=== PATIENT | female | born 1955 | race Caucasian/White ===

== ENCOUNTER 2020-04-21 21:55 | Inpatient (IN) | payer OTHER ==
--- NOTE | 2020-04-21 22:30 | PDOC ---
History of Present Illness - General Chief Complaint: Chest Pain Stated Complaint: CHEST PAIN Time Seen by Provider: 04/21/20 22:25 - History of Present Illness Initial Comments: HPI: 04/21/20 22:03 64 yo F PMH HTN, HLD, NIDDM, asthma, presenting with L sided chest pressure. Mosotho speaking only. Complains of 5/10 L sided chest pressure without radiation and mild SOB since Sunday night, worsened with exertion. Took two baby aspirins this morning and went to an urgent care this morning. Reports that they did an EKG, which was normal, and told her to visit the ER if she continued to have symptoms. Reports diarrhea and frontal 5/10 headache starting today. Family member had similar symptoms, had negative COVID swab. Did not know she was febrile. Denies cough, runny nose, abd pain, urinary changes, N/V, constipation. PCP: Dr. Redmond ROS: GENERAL/CONSTITUTIONAL: endorses fever, chills, diaphoresis, generalized weakness HEAD, EYES, EARS, NOSE AND THROAT: denies rhinorrhea, nasal congestion, throat pain, throat swelling NEUROLOGIC: endorses headache. Denies focal weakness, dizziness, unsteady gait CARDIOVASCULAR: endorses chest pain. Denies syncope, palpitations, irregular heart rate, lightheadedness, peripheral edema RESPIRATORY: endorses shortness of breath and dyspnea with exertion. Denies cough, orthopnea, wheezing, stridor, hemoptysis GASTROINTESTINAL: denies abdominal pain, abdominal distension, nausea, vomiting, diarrhea, constipation, melena, hematochezia GENITOURINARY: denies dysuria, frequency, urgency, hesitancy, hematuria, flank pain, genital pain MUSCULOSKELETAL: denies myalgia, arthralgia, joint swelling, back pain, neck pain SKIN: denies rash, itching, pallor HEMATOLOGIC/IMMUNOLOGIC: denies easy bleeding, easy bruising, lymphadenopathy, frequent infections ENDOCRINE: denies unexplained weight gain, unexplained weight loss, heat intolerance, cold intolerance PSYCHIATRIC: denies anxiety, depression, suicidal or homicidal ideation, hallucinations PE: Gen: well-developed, well-nourished, NAD Neuro: AAOX4, CN II-XII intact HEENT: atraumatic, normocephalic, dry mucous membranes Neck: trachea midline, supple CV: tachycardic in the 110s, regular rhythm, no murmurs, rubs, or gallops Pulm: CTA b/l, no wheezing, satting 96% on RA Abd: soft, non-distended, non-tender MSK: full ROM, intact pulses Extr: no edema, no deformities Skin: warm, dry MDM: Concern for COVID v PNA v PE v ACS. - COVID order set - sepsis order set - Ofirmev - plan for chest CTA pending Cr - reassess, likely admit 04/21/20 22:11 EKG sinus tachycardia at 112 bpm, SD 138, QRS 70, QTc 420. CXR without acute abnormality. 04/22/20 00:03 UA without abnormality. 04/22/20 01:04 CMP unremarkable, Cr 0.8. Will get chest CTA for r/o PE. 04/22/20 01:32 WBC 17.3. 04/22/20 01:43 Chest CTA appears to have L apical consolidation, concerning for PNA v TB. Patient born in [facility] and has been told that she has positive PPDs in the p ast. No known history of latent or active TB. 04/22/20 02:53 Trop negative. Call placed to Imaging universal branch consultant concerning Chest CTA read, told that they will expedite the read. 04/22/20 03:09 Chest CTA: There is no PE or dissection. Heart size is normal. The trachea and bronchi are patent. There is no pericardial effusion. Left upper lobe consolidation likely represents pneumonia. No additional consolidations. There is a small left pleural effusion. Mild prevascular and left hilar adenopathy may be reactive to infection. No fractures identified. The upper abdominal structures are notable only for cholecystectomy clips.' IMPRESSION: Left upper lobe pneumonia with small left pleural effusion. Mild mediastinal left hilar adenopathy may be reactive to pneumonia. Past History - Medical History Allergies/Adverse Reactions: Allergies Allergy/AdvReac Type Severity Reaction Status Date / Time No Known Allergies Allergy Verified 04/22/20 03:51 Home Medications: Ambulatory Orders Albuterol 2.5/Ipratropium 0.5 2 puff PO 04/22/20 Aspirin [Lo-Dose Aspirin EC] 1 tab PO DAILY 04/22/20 Janumet 50-500 mg Tablet 1 tab PO DAILY 04/22/20 SYMBICORT 160/4.5mcg - 1 puff PO 04/22/20 Asthma: Yes COPD: No Diabetes: Yes HTN: Yes Hypercholesterolemia: Yes - Psycho-Social/Smoking History Smoking History: Never smoked - Substance Abuse Hx (Audit-C & DAST Scrn) How often the patient has a drink containing alcohol: Never Score: In Men: 4 or > Positive; In Women: 3 or > Positive: 0 Screen Result (Pos requires Nsg. Audit-10AR): Negative In the last yr the pt used illegal drug/Rx for NonMed reason: No Score: Yes response is considered Positive: 0 Screen Result (Positive result requires Nsg. DAST-10): Negative *Physical Exam - Vital Signs Last Vital Signs Temp Pulse Resp BP Pulse Ox 102.1 F H 98 H 19 138/63 97 04/21/20 21:58 04/21/20 21:58 04/21/20 21:58 04/21/20 21:58 04/21/20 21:58 ED Treatment Course - LABORATORY CBC & Chemistry Diagram: 04/22/20 05:56 04/22/20 05:56 Discharge - Discharge Information Problems reviewed: Yes Clinical Impression/Diagnosis: Left upper lobe consolidation Chest pain Qualifiers: Chest pain type: unspecified Qualified Code(s): R07.9 - Chest pain, unspecified Leukocytosis Qualifiers: Leukocytosis type: unspecified Qualified Code(s): D72.829 - Elevated white blood cell count, unspecified Condition: Guarded - Admission Yes - Follow up/Referral - Patient Discharge Instructions - Post Discharge Activity
[2020-04-21] MEDS ORDERED: ACETAMINOPHEN 1000 MG/100 ML VIAL (NON FORMULARY) IVPB ONE (22:54)
--- NOTE | 2020-04-21 23:44 | PDOC ---
Documentation entered by Nick Shanks SCRIBE, acting as scribe for Gina Marrero DO. Gina Marrero DO: This documentation has been prepared by the Rimma zaragoza Angel, SCRIBE, under my direction and personally reviewed by me in its entirety. I confirm that the documentation accurately reflects all work, treatment, procedures, and medical decision making performed by me. Attending Attestation - Resident Resident Name: CerratoDeshauntriny - ED Attending Attestation I have performed the following: I have examined & evaluated the patient, The case was reviewed & discussed with the resident, I agree w/resident's findings & plan, Exceptions are as noted - HPI HPI: 04/21/20 23:05 The patient is a 64 year old female with a significant past medical history of HTN, Diabetes, asthma and HLD who presents to the ED with SOB and left sided chest pressure since Sunday night, as well as fever and diarrhea starting today. The patient went to Urgent Care today where she got an ECG done, which was normal. Then was told if her symptoms persisted to come into the ED, then was sent home. The patient notes a mild headache, rating it a 5/10 in severity towards the front of her head. The patient denies sore throat, rhinorrhea, N/V or cough. 04/21/20 23:33 - Physicial Exam PE: 04/21/20 23:39 gen: aaox3, appears uncomfortable heart: +s1s2 tachy lungs: cta b/l abd: soft, nt/nd +bs ext: no c/c/e - Medical Decision Making 04/21/20 23:40 a/p: 64yo female with L sided cp since sunday assoc with sob -no radiation -pleuritic component and pressure -has been taking asa at home -went to urgent care, told "ekg was normal" and if worsens come to ER -pt now with a fever, frontal mobley, diarrhea today -family at home also has been sick, negative covid swab -no cough, no loss of taste or smell -will send labs, covid biomarkers, cxr was neg, but will send for cta chest given pleuritic cp -will monitor and reassess 04/22/20 00:01 ua neg 04/22/20 01:44 ct pending official read concern for DOTTIE pna vs tb per the daughter, pt from [facility], hx of +PPD in the past, but never had active TB will start abx, but will need quanteferon gold testing and neg pressure pending further eval 04/22/20 01:46 will microblog symphony for admission Heart Score/ECG Review - ECG Intrepretation Comment:: 04/21/20 23:43 sinus at 112, nl axis, nl interval, no acute st/t wave findings Discharge - Discharge Information Problems reviewed: Yes Clinical Impression/Diagnosis: Chest pain, Leukocytosis, Left upper lobe consolidation Condition: Guarded - Admission Yes - Follow up/Referral Referrals: Saqib Redmond MD [Primary Care Provider] - - Patient Discharge Instructions - Post Discharge Activity
[2020-04-21 23:55] LABS: PH,URINE 6.5 (5.0-8.0); URINE APPEARANCE CLEAR; URINE BILIRUBIN NEGATIVE (NEGATIVE); URINE COLOR YELLOW; URINE GLUCOSE (UA) NEGATIVE (NEGATIVE); URINE KETONE NEGATIVE (NEGATIVE); URINE LEUK ESTERASE NEGATIVE (NEGATIVE); URINE NITRITE NEGATIVE (NEGATIVE); URINE PROTEIN NEGATIVE (NEGATIVE); URINE UROBILINOGEN 0.2 mg/dL (0.2-1.0)
[2020-04-22 00:05] LABS: BASO % 0.6 % (0-2.0); EOS % 0.2 % (0-4.5); HEMATOCRIT 38.1 % (32.4-45.2); HEMOGLOBIN 12.6 GM/dL (10.7-15.3); LYMPH % 13.2 % (8-40); MCH 29.9 pg (25.7-33.7); MCHC 33.1 g/dl (32.0-36.0); MEAN CELL VOLUME 90.4 fl (80-96); MEAN PLT VOLUME 8.6 fl (7.5-11.1); MONO % 13.3 % (3.8-10.2); NEUT % 72.7 % (42.8-82.8); PLATELET COUNT 297 K/MM3 (134-434); RBC 4.21 M/mm3 (3.60-5.2); RDW 12.5 % (11.6-15.6); WHITE BLOOD COUNT 17.3 K/mm3 (4.0-10.0)
[2020-04-22 00:42] LABS: ALBUMIN 3.1 g/dl (3.4-5.0); ALK PHOS 106 U/L (45-117); ANION GAP 5 MMOL/L (8-16); BILIRUBIN,DIRECT 0.2 mg/dL (0.0-0.2); BILIRUBIN,TOTAL 0.5 mg/dL (0.2-1); BLOOD UREA NITROGEN 13.6 mg/dL (7-18); CALCIUM 8.4 mg/dL (8.5-10.1); CHLORIDE 101 mmol/L (98-107); CO2 28 mmol/L (21-32); CREATININE 0.8 mg/dL (0.55-1.3); GLUCOSE,RANDOM 146 mg/dL (74-106); POTASSIUM 4.2 mmol/L (3.5-5.1); SGOT/AST 19 U/L (15-37); SGPT/ALT 26 U/L (13-61); SODIUM 134 mmol/L (136-145); TOT PROT 7.1 g/dl (6.4-8.2)
[2020-04-22 00:47] LABS: INR 1.07 (0.83-1.09); PROTHROMBIN TIME (PATIENT) 12.6 SEC (9.7-13.0)
[2020-04-22 00:49] LABS: ACTIVATED PTT 30.9 SECONDS (25.2-36.5)
[2020-04-22] MEDS ORDERED: CEFTRIAXONE 1,000 MG in DEXTROSE 5%-WATER - 50 ML IVPB ONE (01:37)
[2020-04-22] MEDS ORDERED: AZITHROMYCIN IVPB 500 MG in DEXTROSE 5%-WATER - 250 ML IVPB ONE (01:38)
[2020-04-22] MEDS ORDERED: CEFTRIAXONE 1 GM in DEXTROSE 5%-WATER - 50 ML IVPB ONE (02:05)
[2020-04-22 02:07] LABS: LDH 194 U/L (84-246)
[2020-04-22] MEDS ORDERED: AZITHROMYCIN IVPB 500 MG/250 ML BAG IVPB ONE ×3 (02:36→09:22)
--- NOTE | 2020-04-22 03:16 | HP ---
CHIEF COMPLAINT: Chest pressure PCP: Dr. Saqib Redmond HISTORY OF PRESENT ILLNESS: Ms. Nesbitt is a 64F w a pmhx of HTN, HLD, NIDDM, asthma. She arrived to the ED for a pressure like sensation that originated in the L chest area. The patient reported that the pain was continuous and did not radiate anywhere. C ommunication was done via daughter. The patient had never felt this sensation in the past however she notes that her family member has had similar symptoms recently. The patient reports that the symptoms started on sunday and became worse with increased activity and exertion. The patient endorses diarrhea x1 and a headache. The patient denies productive cough, diaphoresis, changes in bowel or urinary habits. Denies cough, runny nose, abd pain, urinary changes, N/V, constipation. ER course was notable for: (1) CT scan - DOTTIE pneumonia (2) (3) Recent Travel: no PAST MEDICAL HISTORY: as above PAST SURGICAL HISTORY: cholecystectomy, Social History: Smoking: denies Alcohol: socially Drugs: denies HOME MEDICATIONS: REVIEW OF SYSTEMS CONSTITUTIONAL: Absent: fever, chills, diaphoresis, generalized weakness, malaise, loss of appetite, weight change HEENT: Absent: rhinorrhea, nasal congestion, throat pain, throat swelling, difficulty swallowing, mouth swelling, ear pain, eye pain, visual changes CARDIOVASCULAR: Absent: chest pain, syncope, palpitations, irregular heart rate, lightheadedness, peripheral edema RESPIRATORY: Absent: cough, shortness of breath, dyspnea with exertion, orthopnea, wheezing, stridor, hemoptysis GASTROINTESTINAL: Absent: abdominal pain, abdominal distension, nausea, vomiting, diarrhea, constipation, melena, hematochezia PHYSICAL EXAMINATION Vital Signs - 24 hr 04/21/20 04/22/20 21:58 00:02 Temperature 102.1 F H Pulse Rate 98 H Respiratory 19 Rate Blood Pressure 138/63 O2 Sat by Pulse 97 95 Oximetry (%) GENERAL: Awake, alert, and fully oriented, in no acute distress. NECK: Normal range of motion, supple without lymphadenopathy, JVD, or masses. LUNGS: Breath sounds equal, clear to auscultation bilaterally. No wheezes, and no crackles. No accessory muscle use. HEART: Regular rate and rhythm, normal S1 and S2 without murmur, rub or gallop. ABDOMEN: Soft, nontender, not distended, normoactive bowel sounds, no guarding, no rebound, no masses. No hepatomegaly or splenomegaly. UPPER EXTREMITIES: 2+ pulses, warm, well-perfused. No cyanosis. No clubbing. No peripheral edema. LOWER EXTREMITIES: 2+ pulses, warm, well-perfused. No calf tenderness. No peripheral edema. Laboratory Results - last 24 hr 04/21/20 04/21/20 04/21/20 23:40 23:47 23:47 WBC 17.3 H RBC 4.21 Hgb 12.6 Hct 38.1 MCV 90.4 MCH 29.9 MCHC 33.1 RDW 12.5 Plt Count 297 MPV 8.6 Absolute Neuts (auto) 12.6 H Neutrophils % 72.7 Lymphocytes % 13.2 Monocytes % 13.3 H Eosinophils % 0.2 Basophils % 0.6 Nucleated RBC % 0 PT with INR 12.60 INR 1.07 PTT (Actin FS) 30.9 Sodium Potassium Chloride Carbon Dioxide Anion Gap BUN Creatinine Est GFR (CKD-EPI)AfAm Est GFR (CKD-EPI)NonAf Random Glucose Lactic Acid 1.9 Calcium Ferritin Total Bilirubin Direct Bilirubin AST ALT Alkaline Phosphatase LD Total Creatine Kinase Troponin I C-Reactive Protein Total Protein Albumin Urine Color Urine Appearance Urine pH Ur Specific [place] Urine Protein Urine Glucose (UA) Urine Ketones Urine Blood Urine Nitrite Urine Bilirubin Urine Urobilinogen Ur Leukocyte Esterase 04/21/20 04/21/20 23:47 23:47 WBC RBC Hgb Hct MCV MCH MCHC RDW Plt Count MPV Absolute Neuts (auto) Neutrophils % Lymphocytes % Monocytes % Eosinophils % Basophils % Nucleated RBC % PT with INR INR PTT (Actin FS) Sodium 134 L Potassium 4.2 Chloride 101 Carbon Dioxide 28 Anion Gap 5 L BUN 13.6 Creatinine 0.8 Est GFR (CKD-EPI)AfAm 89.04 Est GFR (CKD-EPI)NonAf 76.83 Random Glucose 146 H Lactic Acid Calcium 8.4 L Ferritin 157.7 Total Bilirubin 0.5 Direct Bilirubin 0.2 AST 19 ALT 26 Alkaline Phosphatase 106 LD Total 194 Creatine Kinase 72 Troponin I < 0.03 C-Reactive Protein 15.6 H Total Protein 7.1 Albumin 3.1 L Urine Color Yellow Urine Appearance Clear Urine pH 6.5 Ur Specific [place] 1.003 L Urine Protein Negative Urine Glucose (UA) Negative Urine Ketones Negative Urine Blood Negative Urine Nitrite Negative Urine Bilirubin Negative Urine Urobilinogen 0.2 Ur Leukocyte Esterase Negative ASSESSMENT/PLAN: Ms. Nesbitt is a 64F w a pmhx of HTN, HLD, NIDDM, asthma. She arrived to the ED for a pressure like sensation that originated in the L chest area. #Community acquired pna patient will be admitted to med/surg patient will receive empiric abx tx - azythromycin & ceftriaxone consult ID sputum culture to r/o TB legionella/strep test #NIDDM ISS #Asthma Symbicort albuterol #FEN Diabetic diet #DVT ppx lovenox sq Family Medical History Family History: As Documented Visit type - Medication Review Med list reviewed for High Risk Meds patients 65 and older: Yes - Emergency Visit Emergency Visit: Yes ED Registration Date: 04/22/20 Care time: The patient presented to the Emergency Department on the above date and was hospitalized for further evaluation of their emergent condition. - New Patient This patient is new to me today: Yes Date on this admission: 04/22/20 - Critical Care Critical Care patient: No ATTENDING PHYSICIAN STATEMENT I saw and evaluated the patient. I reviewed the resident's note and discussed the case with the resident. I agree with the resident's findings and plan as documented. SUBJECTIVE: OBJECTIVE: ASSESSMENT AND PLAN:
[2020-04-22] MEDS ORDERED: CEFTRIAXONE 1 GM/50 ML BAG ONE ×2 (03:27→09:22)
--- NOTE | 2020-04-22 03:53 | PN ---
Teaching Attending Note Name of Resident: Yosi Ng ATTENDING PHYSICIAN STATEMENT I saw and evaluated the patient. I reviewed the resident's note and discussed the case with the resident. I agree with the resident's findings and plan as documented. SUBJECTIVE: 64yoF with history of positive PPD, HTN, T2DM, asthma, and HLD who presents with fever, pleuritic chest pain, and diarrhea. Patient developed fever and pleuritic chest pressure about 4 days prior to presentation. Denies cough, shortness of breath, palpitations, lightheadedness, or syncope. Had one episode of diarrhea yesterday and developed dry cough today. She presented to urgent care, had a normal EKG and was told to present to the ED if worsening symptoms. She called her daughter who is a radius corner machine operator who brought her to the ED. Patient was born in [facility] and has a history of positive PPD, unsure if she received BCG. Denies weight loss, hemoptysis, night sweats. Patient was febrile to 102.1F in the ED. Labs notable for WBC 17.3. CXR was negative but CTA chest was done to rule out PE due to pleuritic nature of the chest pain. No PE was seen but DOTTIE consolidation noted. Patient received ceftriaxone and azithromycin, placed on airborne precautions for r/o TB, and is admitted for further work up and management. OBJECTIVE: Vital Signs - 24 hr 04/21/20 04/22/20 21:58 00:02 Temperature 102.1 F H Pulse Rate 98 H Respiratory 19 Rate Blood Pressure 138/63 O2 Sat by Pulse 97 95 Oximetry (%) EXAM Gen: awake, alert, NAD. Pleasant and conversant, generally well-appearing HEENT: NC/AT CV: RRR, no MRG Resp: CTAB, unlabored breathing Abd: Soft, NT, ND, +BS Ext: No edema Derm: No rashes. Warm, dry, intact Neuro: CN II-XII grossly intact Psych: AOx3 Laboratory Results - last 24 hr 04/21/20 04/21/20 04/21/20 23:40 23:47 23:47 WBC 17.3 H RBC 4.21 Hgb 12.6 Hct 38.1 MCV 90.4 MCH 29.9 MCHC 33.1 RDW 12.5 Plt Count 297 MPV 8.6 Absolute Neuts (auto) 12.6 H Neutrophils % 72.7 Lymphocytes % 13.2 Monocytes % 13.3 H Eosinophils % 0.2 Basophils % 0.6 Nucleated RBC % 0 PT with INR 12.60 INR 1.07 PTT (Actin FS) 30.9 Sodium Potassium Chloride Carbon Dioxide Anion Gap BUN Creatinine Est GFR (CKD-EPI)AfAm Est GFR (CKD-EPI)NonAf Random Glucose Lactic Acid 1.9 Calcium Ferritin Total Bilirubin Direct Bilirubin AST ALT Alkaline Phosphatase LD Total Creatine Kinase Troponin I C-Reactive Protein Total Protein Albumin Urine Color Urine Appearance Urine pH Ur Specific [place] Urine Protein Urine Glucose (UA) Urine Ketones Urine Blood Urine Nitrite Urine Bilirubin Urine Urobilinogen Ur Leukocyte Esterase 04/21/20 04/21/20 23:47 23:47 WBC RBC Hgb Hct MCV MCH MCHC RDW Plt Count MPV Absolute Neuts (auto) Neutrophils % Lymphocytes % Monocytes % Eosinophils % Basophils % Nucleated RBC % PT with INR INR PTT (Actin FS) Sodium 134 L Potassium 4.2 Chloride 101 Carbon Dioxide 28 Anion Gap 5 L BUN 13.6 Creatinine 0.8 Est GFR (CKD-EPI)AfAm 89.04 Est GFR (CKD-EPI)NonAf 76.83 Random Glucose 146 H Lactic Acid Calcium 8.4 L Ferritin 157.7 Total Bilirubin 0.5 Direct Bilirubin 0.2 AST 19 ALT 26 Alkaline Phosphatase 106 LD Total 194 Creatine Kinase 72 Troponin I < 0.03 C-Reactive Protein 15.6 H Total Protein 7.1 Albumin 3.1 L Urine Color Yellow Urine Appearance Clear Urine pH 6.5 Ur Specific [place] 1.003 L Urine Protein Negative Urine Glucose (UA) Negative Urine Ketones Negative Urine Blood Negative Urine Nitrite Negative Urine Bilirubin Negative Urine Urobilinogen 0.2 Ur Leukocyte Esterase Negative Imaging, EKG reviewed in chart ASSESSMENT AND PLAN: 64yoF with history of positive PPD, HTN, T2DM, asthma, and HLD who presents with fever, pleuritic chest pain, and diarrhea found to have DOTTIE Sepsis secondary to DOTTIE pneumonia; r/o active TB DOTTIE consolidation on CT per prelim read without cavitation Patient was born in an endemic area and has reported h/o positive PPD Symptoms and imaging are equivocal for active TB but given risk factors will place on isolation pending ID consult - ceftriaxone/azithromycin - strep, legionalla - f/u COVID - IGRA - AFB sputum culture x3 - airborne precautions - ID consult T2DM: ISS Asthma: continue inhalers DVT ppx: Lovenox subq
[2020-04-22] MEDS ORDERED: ALBUTEROL PO SCH (04:30)
[2020-04-22] MEDS ORDERED: IPRATROPIUM PO SCH (04:30)
[2020-04-22] MEDS ORDERED: SYMBICORT PO SCH (04:30)
[2020-04-22] MEDS ORDERED: ALBUTEROL SO4 HFA INHALER IH PRN (05:45)
[2020-04-22 06:20] LABS: BASO % 0.7 % (0-2.0); EOS % 0.5 % (0-4.5); HEMATOCRIT 36.7 % (32.4-45.2); HEMOGLOBIN 12.1 GM/dL (10.7-15.3); LYMPH % 14.9 % (8-40); MCH 29.4 pg (25.7-33.7); MEAN PLT VOLUME 8.5 fl (7.5-11.1); MONO % 15.4 % (3.8-10.2); NEUT % 68.5 % (42.8-82.8); PLATELET COUNT 302 K/MM3 (134-434); RBC 4.13 M/mm3 (3.60-5.2); RDW 12.4 % (11.6-15.6); WHITE BLOOD COUNT 15.8 K/mm3 (4.0-10.0)
[2020-04-22] MEDS ORDERED: ALBUTEROL SO4 HFA INHALER IH ONE (09:20)
[2020-04-22] MEDS ORDERED: ENOXAPARIN NA (PORCINE) 40 MG/0.4 ML DISP.SYRIN SQ ONE (09:20)
[2020-04-22] MEDS ORDERED: ASPIRIN COATED 81 MG TABLET.EC ONE (09:20)
[2020-04-22 09:29] LABS: ALBUMIN 2.9 g/dl (3.4-5.0); BILIRUBIN,TOTAL 0.8 mg/dL (0.2-1); BLOOD UREA NITROGEN 9.8 mg/dL (7-18); CALCIUM 8.4 mg/dL (8.5-10.1); CREATININE 0.8 mg/dL (0.55-1.3); MAGNESIUM 2.1 mg/dL (1.8-2.4); PHOSPHOROUS 3.8 mg/dL (2.5-4.9); POTASSIUM 4.2 mmol/L (3.5-5.1); TOT PROT 6.8 g/dl (6.4-8.2)
--- NOTE | 2020-04-22 09:45 | PN ---
Progress Note (short form) - Note Progress Note: S: Pt has no complaints currently. She reports having a dry cough which had not gone away. She was originally from [facility], however she cannot remember if she received a BCG vaccine as a child. She denies any fever/chills, hemoptysis, no weight loss or night sweats Vital Signs Temperature 98.4 F 04/22/20 06:18 Pulse Rate 89 04/22/20 06:18 Respiratory Rate 18 04/22/20 06:18 Blood Pressure 123/50 L 04/22/20 06:18 O2 Sat by Pulse Oximetry (%) 96 04/22/20 06:18 PE: Gen: NAD, awake, alert, laying in bed HEENT: Nc/At, MMM, BOBBY Neck: No lymphadenopathy LUNG: CTA b/l without wheezes or rales CARD: RRR no murmurs ABD: Soft, NT/ND, + BS EXT: No edema, strong pulses Skin: No rashes CBC, BMP 04/22/20 05:56 04/22/20 05:56 Active Medications Albuterol Sulfate (Ventolin Hfa Inhaler -) 2 puff IH Q4H PRN PRN Reason: SHORT OF BREATH/WHEEZING Aspirin (Ecotrin -) 81 mg PO DAILY WILLAM Last Admin: 04/22/20 09:53 Dose: Not Given Documented by: Budesonide/Formoterol Fumarate (Symbicort 160/4.5mcg -) 1 puff IH BID WILLAM Last Admin: 04/22/20 09:54 Dose: Not Given Documented by: Enoxaparin Sodium (Lovenox -) 40 mg SQ DAILY WILLAM Last Admin: 04/22/20 09:53 Dose: 40 mg Documented by: Azithromycin (Zithromax 500mg Ivpb (Pre-Docked)) 500 mg in 250 mls @ 250 mls/hr IVPB DAILY WILLAM Stop: 04/24/20 09:59 Ceftriaxone Sodium 1 gm/ (Dextrose) 50 mls @ 100 mls/hr IVPB DAILY WILLAM; Protocol A/P: Sepsis 2/2 DOTTIE CAPna R/o TB Type 2 DM, controlled History of HTN, controlled History of HLd Known history of PPD --Rocephin and Zithromax to continue for CAPna --Will need to r/o TB considering symptoms and endemic area --Pt from endemic area and unsure if received BCG vaccine when child --Quantiferon pending; CT reviewed (no cavitations but DOTTIE opacification) --AFB sputum to be collected; can induce if necessary --ISS and BGM --Continue inhalers as above DVT - Lovenox SQ Zachery Agosto, DO - IM
[2020-04-22] MEDS: ENOXAPARIN NA (PORCINE) 40 MG/0.4 ML DISP.SYRIN SQ SCH (09:53)
[2020-04-22] MEDS: ASPIRIN COATED 81 MG TABLET.EC PO SCH (09:53)
[2020-04-22] MEDS: BUDESONIDE/FORMETEROL FUMARATE 160/4.5 mcg INHALER IH SCH (09:54)
--- NOTE | 2020-04-22 21:04 | PN ---
Progress Note (short form) - Note Progress Note: ID CONSULT DICTATED
[2020-04-22 22:50] VITALS: BMI 28.5
[2020-04-23] MEDS: BUDESONIDE/FORMETEROL FUMARATE 160/4.5 mcg INHALER IH SCH ×3 (00:16→22:35)
[2020-04-23] MEDS ORDERED: CEFTRIAXONE 250 MG in DEXTROSE 5%-WATER - 50 ML IVPB ONE (06:00)
[2020-04-23 08:13] LABS: HEMATOCRIT 35.4 % (32.4-45.2); HEMOGLOBIN 12.1 GM/dL (10.7-15.3); MCH 30.3 pg (25.7-33.7); MCHC 34.2 g/dl (32.0-36.0); MEAN CELL VOLUME 88.8 fl (80-96); MEAN PLT VOLUME 8.7 fl (7.5-11.1); PLATELET COUNT 330 K/MM3 (134-434); RBC 3.99 M/mm3 (3.60-5.2); RDW 12.2 % (11.6-15.6); WHITE BLOOD COUNT 10.3 K/mm3 (4.0-10.0)
--- NOTE | 2020-04-23 09:13 | CONS ---
DATE OF CONSULTATION: DATE OF DICTATION: 04/22/2020 INFECTIOUS DISEASE CONSULTATION HISTORY OF PRESENT ILLNESS: The patient is a 64-year-old female who is evaluated for possible pneumonia. She has a past medical history of hypertension, diabetes, asthma, hyperlipidemia. She presented to the emergency room with shortness of breath and left-sided chest discomfort for approximately 3 days prior to admission. She also developed fever and loose bowel movements today. She presented to an urgent care center where an EKG was done and was normal. She was told that if her symptoms persisted to present to the emergency room and was sent home. Patient continued to complain of shortness of breath and pleuritic-type chest pain. She had been taking aspirin at home. She reports cough productive of whitish sputum. She also complained of fever, frontal headache and loose bowel movements. Patient lives at home in the community. She reports having some ill family members at home. She denies any loss of taste or smell. She presented to the emergency room where a COVID-19 PCR was performed and is pending. Chest x-ray showed possible left upper lobe pneumonia. PAST MEDICAL HISTORY: Positive for hypertension, diabetes, asthma, hyperlipidemia. ALLERGIES: She has no known allergies. MEDICATIONS: At the present time include Zithromax, ceftriaxone, albuterol, Lovenox. SOCIAL HISTORY: She is originally from [facility], has been living in the [facility] for many years. She denies tobacco, alcohol or illicit drug use. SYSTEMS REVIEW: Neurologic: No loss of consciousness, no seizure activity, focal weakness. Cardiac: As per HPI. Respiratory: As per HPI. Gastrointestinal: Negative vomiting. Positive diarrhea. Genitourinary: Negative for urinary tract infection. PHYSICAL EXAMINATION: Vital Signs: Temperature 98.1, blood pressure 138/62, pulse 90, regular, respirations 20 per minute, T-Max 102. General: She is awake and alert. She is weak appearing, supine on the stretcher in the emergency room. She is in no acute respiratory distress. Breathing is nonlabored on nasal cannula O2. HEENT: Her sclerae are anicteric. Cardiac: Heart sounds S1 and S2. Lungs: Scattered rhonchi bilaterally. Abdomen: Soft. No tenderness elicited. No mass, rebound or rigidity. Extremities: Negative for edema. LABORATORY DATA: White count 17.3, hematocrit 38.1, platelets 297. Creatinine 0.8. Urinalysis negative. COVID-19 pending. Cultures pending. IMPRESSION: 1. Rule out community acquired versus atypical pneumonia. 2. Rule out sepsis secondary to pneumonia. 3. History of chronic lung disease. RECOMMENDATIONS: Obtain sputum culture, urine legionella and pneumococcal antigen, blood cultures. Continue empiric antibiotic coverage for community acquired versus atypical pneumonia with Zithromax and ceftriaxone. COVID-19 PCR. Will follow. Thank you for the kind referral. SAURABH LEPE M.D. [id number]
[2020-04-23] MEDS ORDERED: AZITHROMYCIN IVPB 500 MG/250 ML BAG IVPB SCH (10:00)
[2020-04-23] MEDS ORDERED: DEXTROSE 5%-WATER - 50 ML IVPB ONE (10:09)
[2020-04-23] MEDS ORDERED: cefTRIAXone SODIUM 1 GM VIAL ONE (10:09)
[2020-04-23] MEDS: ENOXAPARIN NA (PORCINE) 40 MG/0.4 ML DISP.SYRIN SQ SCH (10:14)
[2020-04-23] MEDS: CEFTRIAXONE 1 GM in DEXTROSE 5%-WATER - 50 ML IVPB SCH (10:14)
[2020-04-23] MEDS: ASPIRIN COATED 81 MG TABLET.EC PO SCH (10:14)
--- NOTE | 2020-04-23 13:51 | PN ---
Physical Exam: SUBJECTIVE: Patient seen and examined OBJECTIVE: Vital Signs Period Temp Pulse Resp BP Sys/Lynch Pulse Ox Last 24 Hr 97.8 F-100.2 F 72-107 16-20 110-156/54-75 93-100 GENERAL: The patient is awake, alert, and fully oriented, in no acute distress. HEAD: Normal with no signs of trauma. EYES: PERRL, extraocular movements intact, sclera anicteric, conjunctiva clear. No ptosis. ENT: Ears normal, nares patent, oropharynx clear without exudates, moist mucous membranes. NECK: Trachea midline, full range of motion, supple. LUNGS: Breath sounds equal, clear to auscultation bilaterally, no wheezes, no crackles, no accessory muscle use. HEART: Regular rate and rhythm, S1, S2 without murmur, rub or gallop. ABDOMEN: Soft, nontender, nondistended, normoactive bowel sounds, no guarding, no rebound, no hepatosplenomegaly, no masses. EXTREMITIES: 2+ pulses, warm, well-perfused, no edema. NEUROLOGICAL: Cranial nerves II through XII grossly intact. Normal speech, gait not observed. PSYCH: Normal mood, normal affect. SKIN: Warm, dry, normal turgor, no rashes or lesions noted Laboratory Results - last 24 hr 04/21/20 04/23/20 04/23/20 23:50 07:05 07:05 WBC 10.3 H RBC 3.99 Hgb 12.1 Hct 35.4 MCV 88.8 MCH 30.3 MCHC 34.2 RDW 12.2 Plt Count 330 MPV 8.7 COVID-19 ([facility]) Not detected HIV Ag/Ab Combo Qual Negative Active Medications Generic Name Dose Route Start Last Admin Trade Name Freq PRN Reason Stop Dose Admin Albuterol Sulfate 2 puff 04/22/20 05:45 Ventolin Hfa Inhaler - IH Q4H PRN SHORT OF BREATH/WHEEZING Aspirin 81 mg 04/22/20 10:00 04/23/20 10:14 Ecotrin - PO 81 mg DAILY WILLAM Administration Budesonide/Formoterol Fumarate 1 puff 04/22/20 10:00 04/23/20 10:16 Symbicort 160/4.5mcg - IH 1 puff BID WILLAM Administration Enoxaparin Sodium 40 mg 04/22/20 10:00 04/23/20 10:14 Lovenox - SQ 40 mg DAILY WILLAM Administration Azithromycin 500 mg in 250 mls @ 250 mls/hr 04/23/20 10:00 04/23/20 11:28 Zithromax 500mg Ivpb (Pre-Docked) IVPB 04/24/20 09:59 250 mls/hr DAILY WILLAM Administration Ceftriaxone Sodium 1 gm/ 50 mls @ 100 mls/hr 04/23/20 10:00 04/23/20 10:14 Dextrose IVPB 100 mls/hr DAILY WILLAM Administration Protocol ASSESSMENT/PLAN: 64 YO lady with Mhx of HTN, HLD, DM and hx of positive PPD admitted for fever, pleuritic chest pain, and diarrhea # Sepsis 2/2 CAP R/o TB no fever last 24H, WBC trended down Rocephin and Zithromax pt feeling much improved AFB sputum pending, negative for legionella quantiferron negative ID consult appreciated DM HTN HLD Known history of PPD DVT - Lovenox SQ Visit type - Emergency Visit Emergency Visit: Yes ED Registration Date: 04/22/20 Care time: The patient presented to the Emergency Department on the above date and was hospitalized for further evaluation of their emergent condition. - New Patient This patient is new to me today: Yes Date on this admission: 04/23/20 - Critical Care Critical Care patient: No - Discharge Referral Referred to [facility] Med P.C.: No - Medication Review Med list reviewed for High Risk Meds patients 65 and older: Yes (yes)
--- NOTE | 2020-04-23 15:09 | PN ---
Progress Note, Physician History of Present Illness: AWAKE, ALERT IN BED NO C/O DYSPNEA/COUGH/ SPUTUM LOW GRADE FEVER WBC IMPROVED C/S PENDING COVID-19 (-) - Current Medication List Current Medications: Active Medications Albuterol Sulfate (Ventolin Hfa Inhaler -) 2 puff IH Q4H PRN PRN Reason: SHORT OF BREATH/WHEEZING Aspirin (Ecotrin -) 81 mg PO DAILY [facility] Last Admin: 04/23/20 10:14 Dose: 81 mg Documented by: Budesonide/Formoterol Fumarate (Symbicort 160/4.5mcg -) 1 puff IH BID WILLAM Last Admin: 04/23/20 10:16 Dose: 1 puff Documented by: Enoxaparin Sodium (Lovenox -) 40 mg SQ DAILY [facility] Last Admin: 04/23/20 10:14 Dose: 40 mg Documented by: Azithromycin (Zithromax 500mg Ivpb (Pre-Docked)) 500 mg in 250 mls @ 250 mls/hr IVPB DAILY [facility] Stop: 04/24/20 09:59 Last Admin: 04/23/20 11:28 Dose: 250 mls/hr Documented by: Ceftriaxone Sodium 1 gm/ (Dextrose) 50 mls @ 100 mls/hr IVPB DAILY [facility]; Protocol Last Admin: 04/23/20 10:14 Dose: 100 mls/hr Documented by: - Objective Vital Signs: Vital Signs Temperature 98.9 F 04/23/20 11:00 Pulse Rate 72 04/23/20 09:35 Respiratory Rate 04/23/20 06:00 Blood Pressure 110/60 04/23/20 09:35 O2 Sat by Pulse Oximetry (%) 93 L 04/23/20 11:00 Constitutional: Yes: No Distress, Mild Distress Eyes: Yes: Conjunctiva Clear Cardiovascular: Yes: Regular Rate and Rhythm, S1, S2 Respiratory: Yes: Diminished Gastrointestinal: Yes: Normal Bowel Sounds, Soft. No: Tenderness Edema: No Labs: CBC, BMP 04/23/20 07:05 04/22/20 05:56 INR, PTT INR 1.07 (0.83-1.09) 04/21/20 23:47 Assessment/Plan COMMMUNITY ACQUIRED V. ATYPICAL PNEUMONIA AWAIT C/S CONTINUE EMPIRIC ZITHROMAX/ CEFTRIAXONE
[2020-04-24 08:09] LABS: BASO % 0.3 % (0-2.0); EOS % 2.7 % (0-4.5); HEMATOCRIT 34.8 % (32.4-45.2); HEMOGLOBIN 11.9 GM/dL (10.7-15.3); LYMPH % 25.8 % (8-40); MCH 30.1 pg (25.7-33.7); MCHC 34.1 g/dl (32.0-36.0); MEAN CELL VOLUME 88.3 fl (80-96); MEAN PLT VOLUME 8.4 fl (7.5-11.1); NEUT % 53.2 % (42.8-82.8); PLATELET COUNT 342 K/MM3 (134-434); RBC 3.94 M/mm3 (3.60-5.2); RDW 12.4 % (11.6-15.6); WHITE BLOOD COUNT 7.9 K/mm3 (4.0-10.0)
[2020-04-24 08:33] LABS: ALBUMIN 2.6 g/dl (3.4-5.0); BILIRUBIN,TOTAL 0.3 mg/dL (0.2-1); BLOOD UREA NITROGEN 11.4 mg/dL (7-18); CALCIUM 8.6 mg/dL (8.5-10.1); CREATININE 0.6 mg/dL (0.55-1.3); POTASSIUM 4.3 mmol/L (3.5-5.1); TOT PROT 6.5 g/dl (6.4-8.2)
[2020-04-24] MEDS ORDERED: PT OWN MED DRAWER 7, Y5N ONE ×2 (09:30→17:58)
[2020-04-24] MEDS ORDERED: DEXTROSE 5%-WATER - 50 ML IVPB ONE (09:31)
[2020-04-24] MEDS ORDERED: cefTRIAXone SODIUM 1 GM VIAL ONE (09:31)
[2020-04-24] MEDS: BUDESONIDE/FORMETEROL FUMARATE 160/4.5 mcg INHALER IH SCH ×2 (09:47→23:10)
[2020-04-24] MEDS: ASPIRIN COATED 81 MG TABLET.EC PO SCH (09:47)
[2020-04-24] MEDS: CEFTRIAXONE 1 GM in DEXTROSE 5%-WATER - 50 ML IVPB SCH (09:47)
[2020-04-24] MEDS: ENOXAPARIN NA (PORCINE) 40 MG/0.4 ML DISP.SYRIN SQ SCH (09:47)
--- NOTE | 2020-04-24 16:13 | EKG ---
Test Reason : Blood Pressure : / mmHG Vent. Rate : 112 BPM Atrial Rate : 112 BPM P-R Int : 138 ms QRS Dur : 070 ms QT Int : 308 ms P-R-T Axes : 067 022 061 degrees QTc Int : 420 ms SINUS TACHYCARDIA POSSIBLE LEFT ATRIAL ENLARGEMENT BORDERLINE ECG NO PREVIOUS ECGS AVAILABLE Confirmed by MD Enrique, Dion ([id number]) on 04/24/2020 4:13:16 PM Referred By: Confirmed By:Dion Nunez MD
--- NOTE | 2020-04-24 17:41 | PN ---
Progress Note, Physician - Current Medication List Current Medications: Active Medications Albuterol Sulfate (Ventolin Hfa Inhaler -) 2 puff IH Q4H PRN PRN Reason: SHORT OF BREATH/WHEEZING Aspirin (Ecotrin -) 81 mg PO DAILY [facility] Last Admin: 04/24/20 09:47 Dose: 81 mg Documented by: Budesonide/Formoterol Fumarate (Symbicort 160/4.5mcg -) 1 puff IH BID [facility] Last Admin: 04/24/20 09:47 Dose: 1 puff Documented by: Enoxaparin Sodium (Lovenox -) 40 mg SQ DAILY [facility] Last Admin: 04/24/20 09:47 Dose: 40 mg Documented by: Ceftriaxone Sodium 1 gm/ (Dextrose) 50 mls @ 100 mls/hr IVPB DAILY [facility]; Protocol Last Admin: 04/24/20 09:47 Dose: 100 mls/hr Documented by: - Objective Vital Signs: Vital Signs Temperature 98.1 F 04/24/20 14:40 Pulse Rate 86 04/24/20 14:40 Respiratory Rate 18 04/24/20 14:40 Blood Pressure 119/70 04/24/20 14:40 O2 Sat by Pulse Oximetry (%) 98 04/24/20 14:40 Labs: CBC, BMP 04/24/20 07:16 04/24/20 07:16 INR, PTT INR 1.07 (0.83-1.09) 04/21/20 23:47 Impression/Plan Impression/Plan: Ms. Nesbitt is a 64 year old female with a PMHx notable for HTN, HLD, NIDDM, & asthma. She arrived to the ED for a pressure-like sensation that originated in the Left chest area. #Sepsis 2/2 Community acquired pna Rule out TB Sputum AFP pending / Legionella negative Continue on azithromycin & ceftriaxone consult ID sputum culture to r/o TB Follow-up labs #NIDDM Insulin SS #Asthma Symbicort albuterol #FEN Diabetic diet #DVT prophylaxsis SQ lovenox sq Visit type - Emergency Visit Emergency Visit: Yes ED Registration Date: 04/22/20 Care time: The patient presented to the Emergency Department on the above date and was hospitalized for further evaluation of their emergent condition. - New Patient This patient is new to me today: Yes Date on this admission: 04/24/20 - Critical Care Critical Care patient: No - Discharge Referral Referred to [facility] Med P.C.: No - Medication Review Med list reviewed for High Risk Meds patients 65 and older: Yes
[2020-04-24] MEDS: AZITHROMYCIN IVPB 500 MG/250 ML BAG IVPB SCH (18:01)
[2020-04-25 08:28] LABS: EOS % 3.3 % (0-4.5); HEMATOCRIT 35.3 % (32.4-45.2); HEMOGLOBIN 11.8 GM/dL (10.7-15.3); MCH 29.5 pg (25.7-33.7); MCHC 33.5 g/dl (32.0-36.0); MEAN CELL VOLUME 88.1 fl (80-96); MEAN PLT VOLUME 8.6 fl (7.5-11.1); MONO % 14.4 % (3.8-10.2); NEUT % 49.3 % (42.8-82.8); PLATELET COUNT 396 K/MM3 (134-434); RBC 4.01 M/mm3 (3.60-5.2); RDW 12.2 % (11.6-15.6); WHITE BLOOD COUNT 7.7 K/mm3 (4.0-10.0)
[2020-04-25 09:15] LABS: BLOOD UREA NITROGEN 9.8 mg/dL (7-18); CALCIUM 8.8 mg/dL (8.5-10.1); POTASSIUM 4.4 mmol/L (3.5-5.1)
[2020-04-25 09:17] LABS: CREATININE 0.5 mg/dL (0.55-1.3)
[2020-04-25] MEDS ORDERED: cefTRIAXone SODIUM 1 GM VIAL ONE (09:58)
[2020-04-25] MEDS ORDERED: DEXTROSE 5%-WATER - 50 ML IVPB ONE (10:00)
[2020-04-25] MEDS: CEFTRIAXONE 1 GM in DEXTROSE 5%-WATER - 50 ML IVPB SCH (10:11)
[2020-04-25] MEDS: ENOXAPARIN NA (PORCINE) 40 MG/0.4 ML DISP.SYRIN SQ SCH (10:11)
[2020-04-25] MEDS: ASPIRIN COATED 81 MG TABLET.EC PO SCH (10:11)
[2020-04-25] MEDS: AZITHROMYCIN IVPB 500 MG/250 ML BAG IVPB SCH (10:12)
[2020-04-25] MEDS: BUDESONIDE/FORMETEROL FUMARATE 160/4.5 mcg INHALER IH SCH (10:17)
[2020-04-25 14:44] VITALS: TEMP 98.3
--- NOTE | 2020-04-25 17:13 | PN ---
Progress Note, Physician Chief Complaint: No complaints at this time History of Present Illness: Ms. Nesbitt is a 64 year old female with a PMHx notable for HTN, HLD, NIDDM, & asthma. She arrived to the ED for a pressure-like sensation that originated in the Left chest area. - Current Medication List Current Medications: Active Medications Albuterol Sulfate (Ventolin Hfa Inhaler -) 2 puff IH Q4H PRN PRN Reason: SHORT OF BREATH/WHEEZING Last Admin: 04/25/20 10:25 Dose: 2 inh Documented by: Aspirin (Ecotrin -) 81 mg PO DAILY [facility] Last Admin: 04/25/20 10:11 Dose: 81 mg Documented by: Budesonide/Formoterol Fumarate (Symbicort 160/4.5mcg -) 1 puff IH BID [facility] Last Admin: 04/25/20 10:17 Dose: 1 puff Documented by: Enoxaparin Sodium (Lovenox -) 40 mg SQ DAILY [facility] Last Admin: 04/25/20 10:11 Dose: 40 mg Documented by: Ceftriaxone Sodium 1 gm/ (Dextrose) 50 mls @ 100 mls/hr IVPB DAILY [facility]; Protocol Last Admin: 04/25/20 10:11 Dose: 100 mls/hr Documented by: Azithromycin (Zithromax 500mg Ivpb (Pre-Docked)) 500 mg in 250 mls @ 250 mls/hr IVPB DAILY [facility] Last Admin: 04/25/20 10:12 Dose: 250 mls/hr Documented by: - Objective Vital Signs: Vital Signs Temperature 98.3 F 04/25/20 10:00 Pulse Rate 83 04/25/20 10:00 Respiratory Rate 20 04/25/20 10:00 Blood Pressure 139/74 04/25/20 10:00 O2 Sat by Pulse Oximetry (%) 95 04/25/20 10:00 Constitutional: Yes: Well Nourished, No Distress Eyes: Yes: Conjunctiva Clear, EOM Intact HENT: Yes: WNL, Atraumatic, Normocephalic Neck: Yes: WNL, Supple, Trachea Midline, Rigid Cardiovascular: Yes: Regular Rate and Rhythm Respiratory: Yes: WNL, Regular, CTA Bilaterally Gastrointestinal: Yes: WNL, Normal Bowel Sounds Musculoskeletal: Yes: WNL Extremities: Yes: WNL Edema: No Peripheral Pulses WNL: Yes Integumentary: Yes: WNL Neurological: Yes: WNL, Alert, Oriented ...Motor Strength: WNL Psychiatric: Yes: WNL, Alert, Oriented Labs: CBC, BMP 04/25/20 06:50 04/25/20 06:50 INR, PTT INR 1.07 (0.83-1.09) 04/21/20 23:47 Impression/Plan Impression/Plan: Ms. Nesbitt is a 64 year old female with a PMHx notable for HTN, HLD, NIDDM, & asthma. She arrived to the ED for a pressure-like sensation that originated in the Left chest area. #Sepsis 2/2 Community acquired PNA Rule out TB Sputum AFP pending / Legionella negative Continue on azithromycin & ceftriaxone (04/24) consulted ID sputum culture to rule-out TB Follow-up labs #NIDDM Insulin SS Monitor accuchecks #Asthma Symbicort albuterol #FEN Diabetic diet #DVT prophylaxsis SQ lovenox sq Visit type - Emergency Visit Emergency Visit: Yes ED Registration Date: 04/22/20 Care time: The patient presented to the Emergency Department on the above date and was hospitalized for further evaluation of their emergent condition. - New Patient This patient is new to me today: No - Critical Care Critical Care patient: No - Discharge Referral Referred to [facility] Med P.C.: No - Medication Review Med list reviewed for High Risk Meds patients 65 and older: No
[2020-04-25 18:04] VITALS: BP 126/90; PULSE 82
== END 2020-04-25 18:57 | disposition home or self-care (01) | DRG 871 ==
LOC: JER 21:55 → JERBED 04-22 01:56 → J8W 04-22 21:03
PROVIDERS: ADMIT Hospitalist; ATTEND Internal Medicine
DX: A41.89 Other specified sepsis (principal); J18.9 Pneumonia, unspecified organism; J90 Pleural effusion, not elsewhere classified; E11.9 Type 2 diabetes mellitus without complications; E78.5 Hyperlipidemia, unspecified; I10 Essential (primary) hypertension; J45.909 Unspecified asthma, uncomplicated; R00.0 Tachycardia, unspecified; D72.829 Elevated white blood cell count, unspecified; R50.9 Fever, unspecified; R19.7 Diarrhea, unspecified
CPT/HCPCS: 36415; 71045-TC-FY; 71275-TC; 80048; 80053; 81003; 82248; 82550; 82728; 82962; 83605; 83615; 83735; 84100; 84484; 85025; 85027; 85610; 85730; 86140; 86480; 87040; 87070; 87086; 87116; 87205; 87206; 87389; 87899; 93005; 93010; 99285-25; J0131; U0003